=== PATIENT | female | born 1950 | race Caucasian/White ===

== ENCOUNTER 2017-07-29 07:40 | Inpatient (IN) | payer MEDICARE, OTHER ==
[2017-07-29] MEDS: DEXTROSE 50% 50 ML SYRINGE IV (09:15)
[2017-07-29 09:28] LABS: ADD MAN DIFF? NO
[2017-07-29 09:33] LABS: WHITE BLOOD COUNT 6.1 10^3/ul (4.8-10.8)
[2017-07-29 09:33] LABS: BASOPHIL # 0.1 10^3/ul (0.0-0.1); BASOPHILS % 0.8 % (0.0-2.0); EOSINOPHILS # 0.2 10^3/ul (0.0-0.5); HEMATOCRIT 37.4 % (37.0-47.0); HEMOGLOBIN 12.4 g/dl (12.0-16.0); LYMPHOCYTES # 1.6 10^3/ul (0.8-2.9); LYMPHOCYTES % 26.9 % (15.0-51.0); MEAN CORPUSCULAR HGB CONC 33.2 g/dl (32.0-37.0); MEAN CORPUSCULAR VOLUME 90.3 fl (82.0-101.0); MEAN PLATELET VOLUME 12.8 fl (7.4-10.4); MONOCYTE # 0.7 10^3/ul (0.3-0.9); MONOCYTES % 11.2 % (0.0-11.0); NEUTROPHIL # 3.5 10^3/ul (1.6-7.5); NEUTROPHILS % 57.9 % (39.0-77.0); PLATELET COUNT 135 10^3/UL (140-415); RED BLOOD COUNT 4.14 10^6/ul (4.20-5.40); RED CELL DISTRIBUTION WIDTH 13.7 % (11.5-14.5)
[2017-07-29 09:47] LABS: INR 1.06; PROTIME 13.9 Sec (11.9-14.9); PT RATIO 1.1
[2017-07-29 09:48] LABS: PARTIAL THROMBOPLASTIN TIME 29.5 Sec (25.0-35.0)
[2017-07-29 09:53] LABS: ALANINE AMINOTRANSFERASE 33 IU/L (13-69); ALBUMIN 2.7 g/dl (3.3-4.9); ALBUMIN/GLOBULIN RATIO 0.79; ALKALINE PHOSPHATASE 295 IU/L (42-121); ANION GAP 6 (8-16); ASPARTATE AMINO TRANSFERASE 23 IU/L (15-46); BILIRUBIN,INDIRECT 0.4 mg/dl (0-1.1); BILIRUBIN,TOTAL 0.4 mg/dl (0.2-1.3); CARBON DIOXIDE 34 mmol/L (21-31); CHLORIDE 107 mmol/L (97-110); CHOL/HDL RATIO 2.2 RATIO; CHOLESTEROL 154 mg/dl (100-200); CREATINE KINASE 58 IU/L (23-200); GLUCOSE 79 mg/dl (70-220); HDL CHOLESTEROL 67 mg/dl (35-98); LDL CHOLESTEROL,CALCULATED 63 mg/dl; TOTAL PROTEIN 6.1 g/dl (6.1-8.1); TRIGLYCERIDES 119 mg/dl (0-149)
[2017-07-29 10:00] LABS: BLOOD UREA NITROGEN 17 mg/dl (7-20); CALCIUM 8.8 mg/dl (8.4-10.2); CREATININE 0.88 mg/dl (0.44-1.00); SODIUM 143 mmol/L (135-144)
[2017-07-29 10:03] LABS: CK INDEX 1.8; CK-MB 1.02 ng/ml (0.0-2.4); TROPONIN-I 0.019 ng/ml (0.00-0.12)
[2017-07-29] MEDS ORDERED: LIDOCAINE 1% (MDV) 20 ML INJ (10:34)
[2017-07-29] MEDS ORDERED: MIDAZOLAM 1 MG/ML 2 ML INJ (10:35)
[2017-07-29] MEDS ORDERED: FENTAnyl 50 MCG/ML VIAL (10:35)
[2017-07-29] MEDS: SOD CHLORIDE 0.9% 1,000 ML IV (12:11)
[2017-07-29] MEDS ORDERED: DEXTROSE 50% 50 ML SYRINGE IV ×2 (12:30)
[2017-07-29] MEDS ORDERED: GLUCOSE GEL 15 GRAM TUBE PO ×2 (12:30)
[2017-07-29] MEDS ORDERED: ACETAMINOPHEN 325 MG TAB PO (12:30)
[2017-07-29] MEDS ORDERED: GLUCOSE GEL 15 GRAM TUBE BUCCAL (12:30)
[2017-07-29] MEDS ORDERED: GLUCAGON 1 MG INJ IM (12:30)
[2017-07-29] MEDS ORDERED: morphine 2 MG INJ IV (12:30)
[2017-07-29] MEDS: GABAPENTIN 300 MG CAP PO ×2 (14:16→21:04)
[2017-07-29] MEDS: BUMETANIDE 3 MG in DEXTROSE 5% 18 ML IV (14:16)
[2017-07-29] MEDS: INSULIN ASPART [NOVOLOG] 3 ML PEN SC ×2 (17:15→21:00)
[2017-07-29] MEDS ORDERED: VANCOMYCIN IV PER PHARMACY XX (20:00)
[2017-07-29] MEDS: ATORVASTATIN 20 MG TAB PO (21:04)
[2017-07-29] MEDS: VANCOMYCIN 2 GM in DEXTROSE 5% 500 ML IVPB (22:17)
[2017-07-30] MEDS: ACCU-CHEK XX (02:00)
[2017-07-30] MEDS: PANTOPRAZOLE (EC) 40 MG TAB PO (06:49)
[2017-07-30] MEDS: LEVOFLOXACIN 500 MG TAB PO (06:49)
[2017-07-30] MEDS: BUMETANIDE 1 MG TAB PO (06:50)
[2017-07-30] MEDS: BUMETANIDE 1 MG INJ IV ×2 (08:22→17:19)
[2017-07-30] MEDS: INSULIN ASPART [NOVOLOG] 3 ML PEN SC ×4 (08:23→22:46)
[2017-07-30] MEDS: ASPIRIN 81 MG TAB PO (09:00)
[2017-07-30] MEDS: CLOPIDOGREL 75 MG TAB PO (09:13)
[2017-07-30] MEDS: GABAPENTIN 300 MG CAP PO ×3 (09:13→22:48)
[2017-07-30 09:14] LABS: ADD MAN DIFF? NO
[2017-07-30] MEDS: ENOXAPARIN 40 MG/0.4 ML SYG SC (09:16)
[2017-07-30 09:43] LABS: ALANINE AMINOTRANSFERASE 33 IU/L (13-69); ALBUMIN 2.5 g/dl (3.3-4.9); ALBUMIN/GLOBULIN RATIO 0.75; ALKALINE PHOSPHATASE 272 IU/L (42-121); ANION GAP 8 (8-16); ASPARTATE AMINO TRANSFERASE 19 IU/L (15-46); BILIRUBIN,INDIRECT 0.3 mg/dl (0-1.1); BILIRUBIN,TOTAL 0.3 mg/dl (0.2-1.3); BLOOD UREA NITROGEN 17 mg/dl (7-20); CALCIUM 8.8 mg/dl (8.4-10.2); CARBON DIOXIDE 30 mmol/L (21-31); CHLORIDE 105 mmol/L (97-110); CHOL/HDL RATIO 2.5 RATIO; CHOLESTEROL 146 mg/dl (100-200); CREATININE 0.84 mg/dl (0.44-1.00); GLUCOSE 169 mg/dl (70-220); HDL CHOLESTEROL 57 mg/dl (35-98); LDL CHOLESTEROL,CALCULATED 64 mg/dl; MAGNESIUM 1.5 mg/dl (1.7-2.5); POTASSIUM 3.6 mmol/L (3.5-5.1); SODIUM 139 mmol/L (135-144); TOTAL PROTEIN 5.8 g/dl (6.1-8.1); TRIGLYCERIDES 123 mg/dl (0-149)
[2017-07-30 09:52] LABS: B-TYPE NATRIURETIC PEPTIDE 6560 PG/ML (0-125)
[2017-07-30 10:16] LABS: WHITE BLOOD COUNT 6.1 10^3/ul (4.8-10.8)
[2017-07-30 10:16] LABS: BASOPHILS % 0.7 % (0.0-2.0); EOSINOPHILS # 0.1 10^3/ul (0.0-0.5); EOSINOPHILS % 1.8 % (0.0-7.0); HEMATOCRIT 34.6 % (37.0-47.0); HEMOGLOBIN 11.7 g/dl (12.0-16.0); LYMPHOCYTES # 1.3 10^3/ul (0.8-2.9); LYMPHOCYTES % 20.7 % (15.0-51.0); MEAN CORPUSCULAR HEMOGLOBIN 30.3 pg (29.0-33.0); MEAN CORPUSCULAR HGB CONC 33.8 g/dl (32.0-37.0); MEAN CORPUSCULAR VOLUME 89.6 fl (82.0-101.0); MEAN PLATELET VOLUME 12.5 fl (7.4-10.4); MONOCYTE # 0.6 10^3/ul (0.3-0.9); MONOCYTES % 9.4 % (0.0-11.0); NEUTROPHIL # 4.1 10^3/ul (1.6-7.5); NEUTROPHILS % 67.2 % (39.0-77.0); PLATELET COUNT 125 10^3/UL (140-415); RED BLOOD COUNT 3.86 10^6/ul (4.20-5.40)
[2017-07-30 10:23] LABS: HEMOGLOBIN A1C 7.1 % (0-5.9)
[2017-07-30] MEDS ORDERED: VANCOMYCIN 1 GM 250 ML IVPB (11:00)
[2017-07-30] MEDS: SPIRONOLACTONE 25 MG TAB PO (12:06)
[2017-07-30] MEDS: CLINDAMYCIN 900 MG/D5W (PMX) 50 ML IVPB (22:30)
[2017-07-30] MEDS: ATORVASTATIN 20 MG TAB PO (22:48)
[2017-07-31] MEDS: CLINDAMYCIN 900 MG/D5W (PMX) 50 ML IVPB ×5 (00:21→23:19)
[2017-07-31] MEDS: ACCU-CHEK XX (02:34)
[2017-07-31] MEDS: PANTOPRAZOLE (EC) 40 MG TAB PO (05:26)
[2017-07-31] MEDS: BUMETANIDE 1 MG INJ IV ×2 (05:26→17:43)
[2017-07-31] MEDS: LEVOFLOXACIN 500 MG TAB PO (05:26)
[2017-07-31 07:22] LABS: ANION GAP 9 (8-16); BLOOD UREA NITROGEN 23 mg/dl (7-20); CALCIUM 8.6 mg/dl (8.4-10.2); CARBON DIOXIDE 29 mmol/L (21-31); CHLORIDE 102 mmol/L (97-110); CREATININE 1.05 mg/dl (0.44-1.00); GLUCOSE 239 mg/dl (70-220); MAGNESIUM 1.5 mg/dl (1.7-2.5); SODIUM 136 mmol/L (135-144)
[2017-07-31 07:45] LABS: ALANINE AMINOTRANSFERASE 29 IU/L (13-69); ALBUMIN 2.4 g/dl (3.3-4.9); ALKALINE PHOSPHATASE 248 IU/L (42-121); ANION GAP 11 (8-16); ASPARTATE AMINO TRANSFERASE 16 IU/L (15-46); BILIRUBIN,INDIRECT 0.2 mg/dl (0-1.1); BILIRUBIN,TOTAL 0.2 mg/dl (0.2-1.3); BLOOD UREA NITROGEN 23 mg/dl (7-20); CALCIUM 8.3 mg/dl (8.4-10.2); CARBON DIOXIDE 30 mmol/L (21-31); CHLORIDE 102 mmol/L (97-110); CREATININE 1.12 mg/dl (0.44-1.00); GLUCOSE 232 mg/dl (70-220); POTASSIUM 3.8 mmol/L (3.5-5.1); SODIUM 139 mmol/L (135-144); TOTAL PROTEIN 5.4 g/dl (6.1-8.1)
[2017-07-31 07:47] LABS: B-TYPE NATRIURETIC PEPTIDE 6970 PG/ML (0-125)
[2017-07-31] MEDS: INSULIN ASPART [NOVOLOG] 3 ML PEN SC ×4 (07:55→20:43)
[2017-07-31] MEDS ORDERED: INSULIN GLARGINE [LANtus] 3 ML PEN SC (08:00)
[2017-07-31] MEDS: ASPIRIN 81 MG TAB PO (09:00)
[2017-07-31] MEDS: MAGNESIUM SULFATE 2 GM/50 ML 50 ML IVPB (09:06)
[2017-07-31] MEDS: SPIRONOLACTONE 25 MG TAB PO (09:11)
[2017-07-31] MEDS: CLOPIDOGREL 75 MG TAB PO (09:11)
[2017-07-31] MEDS: GABAPENTIN 300 MG CAP PO ×3 (09:13→20:43)
[2017-07-31] MEDS: ENOXAPARIN 40 MG/0.4 ML SYG SC (09:18)
[2017-07-31] MEDS: INSULIN GLARGINE [LANtus] 3 ML PEN SC (09:46)
[2017-07-31] MEDS: LOSARTAN 25 MG TAB PO (11:47)
[2017-07-31] MEDS: ATORVASTATIN 20 MG TAB PO (20:43)
[2017-08-01] MEDS: ACCU-CHEK XX (02:00)
[2017-08-01] MEDS: CLINDAMYCIN 900 MG/D5W (PMX) 50 ML IVPB ×4 (06:38→23:51)
[2017-08-01] MEDS: PANTOPRAZOLE (EC) 40 MG TAB PO (06:38)
[2017-08-01] MEDS: LEVOFLOXACIN 500 MG TAB PO (06:38)
[2017-08-01] MEDS: BUMETANIDE 1 MG INJ IV ×2 (06:38→17:16)
[2017-08-01] MEDS: INSULIN GLARGINE [LANtus] 3 ML PEN SC (07:37)
[2017-08-01] MEDS: INSULIN ASPART [NOVOLOG] 3 ML PEN SC ×4 (07:38→21:00)
[2017-08-01] MEDS: CLOPIDOGREL 75 MG TAB PO (08:17)
[2017-08-01] MEDS: SPIRONOLACTONE 25 MG TAB PO (08:17)
[2017-08-01] MEDS: GABAPENTIN 300 MG CAP PO ×3 (08:19→21:28)
[2017-08-01] MEDS: ENOXAPARIN 40 MG/0.4 ML SYG SC (08:21)
[2017-08-01 08:28] LABS: ADD MAN DIFF? NO
[2017-08-01] MEDS: LOSARTAN 25 MG TAB PO (08:28)
[2017-08-01 08:34] LABS: ABNORMAL IP MESSAGE 1; BASOPHILS % 0.7 % (0.0-2.0); EOSINOPHILS # 0.2 10^3/ul (0.0-0.5); EOSINOPHILS % 3.8 % (0.0-7.0); HEMOGLOBIN 10.7 g/dl (12.0-16.0); LYMPHOCYTES # 1.5 10^3/ul (0.8-2.9); LYMPHOCYTES % 23.7 % (15.0-51.0); MEAN CORPUSCULAR HEMOGLOBIN 29.9 pg (29.0-33.0); MEAN CORPUSCULAR HGB CONC 33.4 g/dl (32.0-37.0); MEAN CORPUSCULAR VOLUME 89.4 fl (82.0-101.0); MEAN PLATELET VOLUME 13.2 fl (7.4-10.4); MONOCYTE # 0.9 10^3/ul (0.3-0.9); MONOCYTES % 14.1 % (0.0-11.0); NEUTROPHIL # 3.5 10^3/ul (1.6-7.5); NEUTROPHILS % 57.2 % (39.0-77.0); PLATELET COUNT 105 10^3/UL (140-415); RED BLOOD COUNT 3.58 10^6/ul (4.20-5.40); RED CELL DISTRIBUTION WIDTH 13.8 % (11.5-14.5)
[2017-08-01 08:34] LABS: WHITE BLOOD COUNT 6.1 10^3/ul (4.8-10.8)
[2017-08-01 08:48] LABS: POSITIVE DIFF @See below
[2017-08-01 08:52] LABS: ALANINE AMINOTRANSFERASE 31 IU/L (13-69); ALBUMIN 2.5 g/dl (3.3-4.9); ALKALINE PHOSPHATASE 225 IU/L (42-121); ANION GAP 10 (8-16); ASPARTATE AMINO TRANSFERASE 15 IU/L (15-46); BILIRUBIN,INDIRECT 0.3 mg/dl (0-1.1); BILIRUBIN,TOTAL 0.3 mg/dl (0.2-1.3); BLOOD UREA NITROGEN 27 mg/dl (7-20); CALCIUM 8.4 mg/dl (8.4-10.2); CARBON DIOXIDE 31 mmol/L (21-31); CHLORIDE 100 mmol/L (97-110); GLUCOSE 155 mg/dl (70-220); SODIUM 137 mmol/L (135-144); TOTAL PROTEIN 5.6 g/dl (6.1-8.1)
[2017-08-01 08:57] LABS: B-TYPE NATRIURETIC PEPTIDE 4850 PG/ML (0-125)
[2017-08-01 08:59] LABS: MAGNESIUM 1.8 mg/dl (1.7-2.5)
[2017-08-01 08:59] LABS: PHOSPHORUS 5.2 mg/dl (2.5-4.9)
[2017-08-01] MEDS: METOLAZONE 2.5 MG TAB PO (09:21)
[2017-08-01] MEDS: ATORVASTATIN 20 MG TAB PO (21:28)
[2017-08-02] MEDS: ACCU-CHEK XX (02:50)
[2017-08-02] MEDS: CLINDAMYCIN 900 MG/D5W (PMX) 50 ML IVPB ×3 (05:27→17:51)
[2017-08-02] MEDS: PANTOPRAZOLE (EC) 40 MG TAB PO (05:28)
[2017-08-02] MEDS: BUMETANIDE 1 MG INJ IV ×2 (05:28→17:43)
[2017-08-02] MEDS: LEVOFLOXACIN 500 MG TAB PO (05:28)
[2017-08-02] MEDS: INSULIN GLARGINE [LANtus] 3 ML PEN SC ×2 (08:00→16:32)
[2017-08-02] MEDS: INSULIN ASPART [NOVOLOG] 3 ML PEN SC ×4 (08:22→20:36)
[2017-08-02] MEDS: SPIRONOLACTONE 25 MG TAB PO (08:25)
[2017-08-02] MEDS: GABAPENTIN 300 MG CAP PO ×3 (08:25→20:29)
[2017-08-02] MEDS: ENOXAPARIN 40 MG/0.4 ML SYG SC (08:25)
[2017-08-02] MEDS: LOSARTAN 25 MG TAB PO (08:26)
[2017-08-02] MEDS: CLOPIDOGREL 75 MG TAB PO (08:26)
[2017-08-02 09:18] LABS: ANION GAP 12 (8-16); BLOOD UREA NITROGEN 32 mg/dl (7-20); CALCIUM 8.3 mg/dl (8.4-10.2); CARBON DIOXIDE 30 mmol/L (21-31); CHLORIDE 99 mmol/L (97-110); CREATININE 1.62 mg/dl (0.44-1.00); GLUCOSE 191 mg/dl (70-220); MAGNESIUM 1.9 mg/dl (1.7-2.5); PHOSPHORUS 5.3 mg/dl (2.5-4.9); POTASSIUM 4.1 mmol/L (3.5-5.1); SODIUM 137 mmol/L (135-144)
[2017-08-02] MEDS: SILVER SULFADIAZINE 1% 25 GM CR TOP (16:30)
[2017-08-02] MEDS: ATORVASTATIN 20 MG TAB PO (20:29)
[2017-08-03] MEDS: CLINDAMYCIN 900 MG/D5W (PMX) 50 ML IVPB ×3 (00:22→08:09)
[2017-08-03] MEDS: SILVER SULFADIAZINE 1% 25 GM CR TOP ×3 (00:23→21:39)
[2017-08-03] MEDS: ACCU-CHEK XX (01:32)
[2017-08-03] MEDS: BUMETANIDE 1 MG INJ IV (05:42)
[2017-08-03] MEDS: LEVOFLOXACIN 500 MG TAB PO (05:42)
[2017-08-03] MEDS: PANTOPRAZOLE (EC) 40 MG TAB PO (05:42)
[2017-08-03] MEDS ORDERED: INSULIN GLARGINE [LANtus] 3 ML PEN SC (08:00)
[2017-08-03] MEDS: SPIRONOLACTONE 25 MG TAB PO (08:33)
[2017-08-03] MEDS: GABAPENTIN 300 MG CAP PO ×3 (08:34→21:36)
[2017-08-03] MEDS: CLOPIDOGREL 75 MG TAB PO (08:34)
[2017-08-03] MEDS: LOSARTAN 25 MG TAB PO (08:35)
[2017-08-03] MEDS: ENOXAPARIN 40 MG/0.4 ML SYG SC (08:36)
[2017-08-03] MEDS: INSULIN ASPART [NOVOLOG] 3 ML PEN SC ×4 (08:37→21:46)
[2017-08-03 09:51] LABS: ADD MAN DIFF? NO
[2017-08-03 10:05] LABS: ABNORMAL IP MESSAGE 1; BASOPHILS % 0.5 % (0.0-2.0); EOSINOPHILS # 0.3 10^3/ul (0.0-0.5); EOSINOPHILS % 4.5 % (0.0-7.0); HEMATOCRIT 34.4 % (37.0-47.0); HEMOGLOBIN 11.4 g/dl (12.0-16.0); LYMPHOCYTES # 1.1 10^3/ul (0.8-2.9); LYMPHOCYTES % 18.4 % (15.0-51.0); MEAN CORPUSCULAR HEMOGLOBIN 29.8 pg (29.0-33.0); MEAN CORPUSCULAR HGB CONC 33.1 g/dl (32.0-37.0); MEAN CORPUSCULAR VOLUME 90.1 fl (82.0-101.0); MEAN PLATELET VOLUME 13.8 fl (7.4-10.4); MONOCYTE # 0.8 10^3/ul (0.3-0.9); MONOCYTES % 13.4 % (0.0-11.0); NEUTROPHIL # 3.8 10^3/ul (1.6-7.5); NEUTROPHILS % 62.7 % (39.0-77.0); PLATELET COUNT 131 10^3/UL (140-415); RED BLOOD COUNT 3.82 10^6/ul (4.20-5.40); RED CELL DISTRIBUTION WIDTH 13.6 % (11.5-14.5)
[2017-08-03 10:07] LABS: POSITIVE DIFF @See below
[2017-08-03 10:19] LABS: ALANINE AMINOTRANSFERASE 12 IU/L (13-69); ALBUMIN 2.6 g/dl (3.3-4.9); ALBUMIN/GLOBULIN RATIO 0.83; ALKALINE PHOSPHATASE 313 IU/L (42-121); ANION GAP 11 (8-16); ASPARTATE AMINO TRANSFERASE 47 IU/L (15-46); BILIRUBIN,INDIRECT 0.3 mg/dl (0-1.1); BILIRUBIN,TOTAL 0.3 mg/dl (0.2-1.3); BLOOD UREA NITROGEN 36 mg/dl (7-20); CALCIUM 8.5 mg/dl (8.4-10.2); CARBON DIOXIDE 33 mmol/L (21-31); CHLORIDE 96 mmol/L (97-110); CREATININE 1.74 mg/dl (0.44-1.00); GLUCOSE 172 mg/dl (70-220); POTASSIUM 4.7 mmol/L (3.5-5.1); SODIUM 135 mmol/L (135-144); TOTAL PROTEIN 5.7 g/dl (6.1-8.1)
[2017-08-03 10:21] LABS: B-TYPE NATRIURETIC PEPTIDE 4040 PG/ML (0-125)
[2017-08-03 10:27] LABS: ANION GAP 12 (8-16); BLOOD UREA NITROGEN 36 mg/dl (7-20); CALCIUM 8.6 mg/dl (8.4-10.2); CARBON DIOXIDE 33 mmol/L (21-31); CHLORIDE 95 mmol/L (97-110); CREATININE 1.79 mg/dl (0.44-1.00); GLUCOSE 177 mg/dl (70-220); PHOSPHORUS 4.9 mg/dl (2.5-4.9); POTASSIUM 4.4 mmol/L (3.5-5.1); SODIUM 136 mmol/L (135-144)
[2017-08-03] MEDS ORDERED: BUMETANIDE 1 MG TAB PO (15:39)
[2017-08-03] MEDS: INSULIN GLARGINE [LANtus] 3 ML PEN SC (20:00)
[2017-08-03] MEDS: ATORVASTATIN 20 MG TAB PO (21:36)
[2017-08-03] MEDS: ZYVOX 600 MG TAB PO (21:36)
[2017-08-04] MEDS: ACCU-CHEK XX (01:35)
[2017-08-04] MEDS: LEVOFLOXACIN 500 MG TAB PO (06:28)
[2017-08-04] MEDS: PANTOPRAZOLE (EC) 40 MG TAB PO (06:28)
[2017-08-04] MEDS: INSULIN ASPART [NOVOLOG] 3 ML PEN SC ×7 (08:00→21:00)
[2017-08-04] MEDS: ZYVOX 600 MG TAB PO ×2 (08:49→21:54)
[2017-08-04] MEDS: GABAPENTIN 300 MG CAP PO ×3 (08:49→21:54)
[2017-08-04] MEDS: CLOPIDOGREL 75 MG TAB PO (08:50)
[2017-08-04] MEDS: SPIRONOLACTONE 25 MG TAB PO (08:50)
[2017-08-04] MEDS: BUMETANIDE 1 MG TAB PO (08:50)
[2017-08-04] MEDS: ENOXAPARIN 40 MG/0.4 ML SYG SC (08:54)
[2017-08-04] MEDS: LOSARTAN 25 MG TAB PO (08:55)
[2017-08-04] MEDS: SILVER SULFADIAZINE 1% 25 GM CR TOP ×2 (09:00→21:55)
[2017-08-04 10:29] LABS: ANION GAP 11 (8-16); BLOOD UREA NITROGEN 38 mg/dl (7-20); CALCIUM 8.7 mg/dl (8.4-10.2); CARBON DIOXIDE 31 mmol/L (21-31); CHLORIDE 99 mmol/L (97-110); CREATININE 1.57 mg/dl (0.44-1.00); GLUCOSE 133 mg/dl (70-220); PHOSPHORUS 4.5 mg/dl (2.5-4.9); POTASSIUM 4.4 mmol/L (3.5-5.1); SODIUM 137 mmol/L (135-144)
[2017-08-04] MEDS: ATORVASTATIN 20 MG TAB PO (21:54)
[2017-08-04] MEDS: INSULIN GLARGINE [LANtus] 3 ML PEN SC (21:56)
[2017-08-05] MEDS: ACCU-CHEK XX (02:30)
[2017-08-05] MEDS: PANTOPRAZOLE (EC) 40 MG TAB PO (06:33)
[2017-08-05] MEDS: LEVOFLOXACIN 500 MG TAB PO (06:33)
[2017-08-05] MEDS: ZYVOX 600 MG TAB PO (08:53)
[2017-08-05] MEDS: GABAPENTIN 300 MG CAP PO ×2 (08:53→12:43)
[2017-08-05] MEDS: SILVER SULFADIAZINE 1% 25 GM CR TOP (08:53)
[2017-08-05] MEDS: SPIRONOLACTONE 25 MG TAB PO (08:53)
[2017-08-05] MEDS: CLOPIDOGREL 75 MG TAB PO (08:54)
[2017-08-05] MEDS: LOSARTAN 25 MG TAB PO (08:54)
[2017-08-05] MEDS: ENOXAPARIN 40 MG/0.4 ML SYG SC (08:55)
[2017-08-05] MEDS: INSULIN ASPART [NOVOLOG] 3 ML PEN SC ×4 (08:56→12:50)
[2017-08-06] MEDS ORDERED: DOXYCYCLINE 100 MG TAB PO (09:00)
== END 2017-08-05 14:25 | DRG 286 ==
LOC: SDS 07:40 → REC 12:11 → MS4 15:15
PROVIDERS: Internal Medicine Interventional Cardiology
PROC: 4A023N8 Measurement of Cardiac Sampling and Pressure, Bilateral, Percutaneous Approach (ICD-10-PCS; principal; 2017-07-29 09:58)
PROC: B213YZZ Fluoroscopy of Multiple Coronary Artery Bypass Grafts using Other Contrast (ICD-10-PCS; 2017-07-29 09:58)
PROC: B211YZZ Fluoroscopy of Multiple Coronary Arteries using Other Contrast (ICD-10-PCS; 2017-07-29 09:58)
PROC: B215YZZ Fluoroscopy of Left Heart using Other Contrast (ICD-10-PCS; 2017-07-29 09:58)
DX: I13.0 Hypertensive heart and chronic kidney disease with heart failure and stage 1 through stage 4 chronic kidney disease, or unspecified chronic kidney disease (principal); I50.43 Acute on chronic combined systolic (congestive) and diastolic (congestive) heart failure; N17.9 Acute kidney failure, unspecified; E11.22 Type 2 diabetes mellitus with diabetic chronic kidney disease; R65.10 Systemic inflammatory response syndrome (SIRS) of non-infectious origin without acute organ dysfunction; E11.40 Type 2 diabetes mellitus with diabetic neuropathy, unspecified; I25.82 Chronic total occlusion of coronary artery; I48.0 Paroxysmal atrial fibrillation; R00.1 Bradycardia, unspecified; L03.115 Cellulitis of right lower limb; L03.116 Cellulitis of left lower limb; Z68.43 Body mass index [BMI] 50.0-59.9, adult; I35.0 Nonrheumatic aortic (valve) stenosis; N18.9 Chronic kidney disease, unspecified; I25.5 Ischemic cardiomyopathy; I89.0 Lymphedema, not elsewhere classified; I87.2 Venous insufficiency (chronic) (peripheral); E83.42 Hypomagnesemia; E11.65 Type 2 diabetes mellitus with hyperglycemia; I25.2 Old myocardial infarction; E78.5 Hyperlipidemia, unspecified; E11.51 Type 2 diabetes mellitus with diabetic peripheral angiopathy without gangrene; I87.8 Other specified disorders of veins; R53.81 Other malaise; D64.9 Anemia, unspecified; E66.01 Morbid (severe) obesity due to excess calories; I25.10 Atherosclerotic heart disease of native coronary artery without angina pectoris; Z79.82 Long term (current) use of aspirin; Z79.4 Long term (current) use of insulin; Z95.5 Presence of coronary angioplasty implant and graft; Z95.1 Presence of aortocoronary bypass graft; T50.2X5A Adverse effect of carbonic-anhydrase inhibitors, benzothiadiazides and other diuretics, initial encounter; Y92.230 Patient room in hospital as the place of occurrence of the external cause
CPT/HCPCS: 71045; 80048; 80053; 80061; 82550; 82553; 82962; 83036; 83735; 83880; 84100; 84443; 84484; 85025; 85610; 85651; 85730; 86140; 87081; 93005; 93461; 97110; 97116; 97162; 97530